=== PATIENT | female | born 1960 | race Caucasian/White ===

== ENCOUNTER 2020-04-03 19:42 | Emergency (ER) | payer MEDICARE, MEDICAID ==
[~2020-04-03] VITALS: Ht 165.1 cm; Wt 60.0 kg
[2020-04-03 19:50] VITALS: BP 130/94
== END 2020-04-04 02:20 | disposition home or self-care (01) ==
LOC: ER 19:42
DX: F10.129 Alcohol abuse with intoxication, unspecified (principal); G89.29 Other chronic pain; M54.9 Dorsalgia, unspecified; I25.2 Old myocardial infarction; Y90.9 Presence of alcohol in blood, level not specified
CPT/HCPCS: 99283

== ENCOUNTER 2020-04-05 04:32 | Emergency (ER) | payer MEDICARE, MEDICAID ==
[~2020-04-05] VITALS: Ht 157.5 cm; Wt 61.0 kg
[2020-04-05 08:13] LABS: BASOPHILS % 1.6 % (0.0-2.0); EOSINOPHILS % 0.9 % (0.0-5.0); HEMATOCRIT. 36.3 % (36.0-48.0); HEMOGLOBIN. 12.4 g/dL (12.0-16.0); LYMPHOCYTES % 49.3 % (20.0-50.0); MEAN CORPUSCULAR HEMOGLOBIN 34.4 pg (28.0-32.0); MEAN CORPUSCULAR VOLUME 100.7 fL (81.0-99.0); MEAN PLATELET VOLUME 7.2 fl (7.4-10.4); MONOCYTES % 5.2 % (2.0-8.0); PLATELET 74 x1000/uL (130-400); RED BLOOD CELL COUNT 3.61 mill/uL (4.2-5.4); RED CELL DISTRIBUTION WIDTH 19.4 % (11.6-14.6)
[2020-04-05 08:16] LABS: CHLORIDE 107 mEq/L (98-107)
[2020-04-05 08:34] LABS: ETHANOL BLOOD 366 mg/dL
[2020-04-05 08:57] VITALS: BP 131/88
== END 2020-04-05 10:07 | disposition home or self-care (01) ==
LOC: ER 04:32
DX: F10.129 Alcohol abuse with intoxication, unspecified (principal); Y90.8 Blood alcohol level of 240 mg/100 ml or more; I25.2 Old myocardial infarction
CPT/HCPCS: 36415; 80053; 80320; 85025; 99283; G0480

== ENCOUNTER 2020-06-08 14:33 | Inpatient (IN) | payer MEDICARE, MEDICAID ==
[~2020-06-08] VITALS: Ht 165.1 cm; Wt 59.0 kg
[2020-06-08] MEDS ORDERED: ONDANSETRON 4MG ODT PO STA (14:48)
[2020-06-08] MEDS ORDERED: ACETAMINOPHEN 325MG TABLET PO STA (14:48)
[2020-06-08 15:22] LABS: BASOPHILS % 1.1 % (0.0-2.0); EOSINOPHILS % 1.9 % (0.0-5.0); HEMATOCRIT. 39.3 % (36.0-48.0); HEMOGLOBIN. 13.4 g/dL (12.0-16.0); LYMPHOCYTES % 37.4 % (20.0-50.0); MEAN CORPUSCULAR HEMOGLOBIN 35.3 pg (28.0-32.0); MEAN CORPUSCULAR VOLUME 103.6 fL (81.0-99.0); MONOCYTES % 9.7 % (2.0-8.0); NEUTROPHILS % 49.9 % (40.0-76.0); RED BLOOD CELL COUNT 3.79 mill/uL (4.2-5.4)
[2020-06-08 15:29] LABS: CHLORIDE 103 mEq/L (98-107)
[2020-06-08 15:33] LABS: INR 1.1; PROTHROMBIN TIME 11.6 sec (9.6-11.0)
[2020-06-08 15:54] LABS: MEAN PLATELET VOLUME 7.7 fl (7.4-10.4)
[2020-06-08 15:55] LABS: PLATELET 237 x1000/uL (130-400)
[2020-06-08] MEDS ORDERED: ACETAMINOPHEN 650MG/20.3ML UDC GT PRN (17:00)
[2020-06-08] MEDS ORDERED: CLONIDINE 0.1MG TABLET PO PRN (17:00)
[2020-06-08] MEDS ORDERED: ONDANSETRON HCL 4MG/2ML INJ IV PRN (17:00)
[2020-06-08] MEDS ORDERED: HYDROMORPHONE HCL/PF 2MG/ML CPJ IV PRN (17:00)
[2020-06-08] MEDS ORDERED: MAGNESIUM/ALUMINUM HYDROXIDE/SIMETHICONE 30ML UDC PO PRN (17:00)
[2020-06-08] MEDS: DEXT 5%/0.45% NACL KCL 10MEQ/L 1,000 ML IV SCH (22:02)
[2020-06-08] MEDS: PANTOPRAZOLE SODIUM 40 MG/VIAL IV SCH (22:02)
[2020-06-08 22:54] VITALS: BP 99/49
[2020-06-09] VITALS: BP 99/49
[2020-06-09 04:00] VITALS: BP 109/67
[2020-06-09] MEDS ORDERED: GABA100C MT (05:06)
[2020-06-09] MEDS ORDERED: LORA-249 MT (05:06)
[2020-06-09] MEDS ORDERED: OXYC-662 MT (05:06)
[2020-06-09] MEDS: DEXT 5%/0.45% NACL KCL 10MEQ/L 1,000 ML IV SCH (06:29)
[2020-06-09 06:56] LABS: CHLORIDE 104 mEq/L (98-107)
[2020-06-09 07:01] LABS: BASOPHILS % 1.2 % (0.0-2.0); EOSINOPHILS % 2.3 % (0.0-5.0); HEMATOCRIT. 34.4 % (36.0-48.0); HEMOGLOBIN. 11.8 g/dL (12.0-16.0); LYMPHOCYTES % 37.9 % (20.0-50.0); MEAN CORPUSCULAR HEMOGLOBIN 35.4 pg (28.0-32.0); MEAN CORPUSCULAR VOLUME 103.2 fL (81.0-99.0); MEAN PLATELET VOLUME 7.4 fl (7.4-10.4); MONOCYTES % 10.2 % (2.0-8.0); NEUTROPHILS % 48.4 % (40.0-76.0); PLATELET 217 x1000/uL (130-400); RED BLOOD CELL COUNT 3.33 mill/uL (4.2-5.4); RED CELL DISTRIBUTION WIDTH 17.5 % (11.6-14.6)
[2020-06-09 08:00] VITALS: BP 94/63
[2020-06-09] MEDS: PANTOPRAZOLE SODIUM 40 MG/VIAL IV SCH (09:25)
[2020-06-09] MEDS ORDERED: POTASSIUM CHLORIDE 20MEQ TABLET SR PO SCH (11:15)
[2020-06-09] MEDS ORDERED: KETOROLAC 30MG/ML VIAL IV PRN (11:15)
[2020-06-09 11:48] VITALS: BP 102/63
[2020-06-09 15:49] VITALS: BP 115/76
[2020-06-09 20:00] VITALS: BP 110/70
[2020-06-09] MEDS ORDERED: MAGNESIUM 1 G PREMIX 100 ML IV NR (21:30)
[2020-06-10] VITALS: BP 106/77
[2020-06-10 04:00] VITALS: BP 108/67
[2020-06-10 07:33] LABS: CHLORIDE 103 mEq/L (98-107)
[2020-06-10] MEDS ORDERED: LIDOCAINE HCL 1% 20ML VIAL (Pyxis) INJ ONE (07:46)
[2020-06-10 08:00] VITALS: BP 100/63
[2020-06-10] MEDS ORDERED: IOHEXOL-300 50 ML BOTTLE IV ONE (08:18)
[2020-06-10] MEDS: PANTOPRAZOLE SODIUM 40 MG/VIAL IV SCH (09:18)
[2020-06-10 12:00] VITALS: BP 94/65
[2020-06-10 16:00] VITALS: BP 113/75
[2020-06-10 20:00] VITALS: BP 113/81
[2020-06-11] VITALS: BP 115/83
[2020-06-11 04:00] VITALS: BP 120/85
[2020-06-11 08:00] VITALS: BP 124/76
[2020-06-11] MEDS: PANTOPRAZOLE SODIUM 40 MG/VIAL IV SCH (09:07)
[2020-06-11 14:00] VITALS: BP 98/60
== END 2020-06-11 14:10 | DRG 641 ==
LOC: ER 14:33 → 6EST 16:24 → EDBEDREQSVC 16:38 → EDBEDREQ 16:38 → EDBEDREQTM 16:38 → EDBEDREQSVC 18:19 → ENRESERV 20:23
PROVIDERS: ADMIT Hospitalist; ATTEND Hospitalist
PROC: 02HV33Z Insertion of Infusion Device into Superior Vena Cava, Percutaneous Approach (ICD-10-PCS; principal; 2020-06-10)
PROC: B548ZZA Ultrasonography of Superior Vena Cava, Guidance (ICD-10-PCS; 2020-06-10)
PROC: B5181ZA Fluoroscopy of Superior Vena Cava using Low Osmolar Contrast, Guidance (ICD-10-PCS; 2020-06-10)
DX: E87.6 Hypokalemia (principal); R10.9 Unspecified abdominal pain; D63.8 Anemia in other chronic diseases classified elsewhere; Z20.822 Contact with and (suspected) exposure to COVID-19; R74.01 Elevation of levels of liver transaminase levels; R53.1 Weakness; F10.10 Alcohol abuse, uncomplicated; Z88.8 Allergy status to other drugs, medicaments and biological substances; Z59.0 Homelessness; Z79.899 Other long term (current) drug therapy; Z88.0 Allergy status to penicillin; I25.2 Old myocardial infarction; M54.5 Low back pain
CPT/HCPCS: 36415; 36573; 74176; 80048; 80053; 83735; 85025; 87426; 93005; 97162; 99285; A6261; C1725; C1769; C9113; J3475; J3490; Q0162; Q9967

== ENCOUNTER 2020-11-04 21:34 | Emergency (ER) | payer MEDICARE, MEDICAID ==
[~2020-11-04] VITALS: Ht 167.6 cm; Wt 57.0 kg
[~2020-11-04 21:34] MED LIST: GABA100C MT; LORA-249 MT; OXYC-662 MT
[2020-11-04] MEDS ORDERED: ACETAMINOPHEN 325MG TABLET PO ONE (23:45)
[2020-11-05] MEDS ORDERED: ACET650T37 MT (03:23)
[2020-11-05 03:37] VITALS: BP 107/63
[2020-11-05] MEDS ORDERED: ONDA4TAB5 PO (12:45)
[2020-11-05] MEDS ORDERED: ONDA4TAB5 MT (19:10)
[2020-11-05] MEDS ORDERED: TRAM50TA94 MT (23:40)
== END 2020-11-05 03:37 | disposition home or self-care (01) ==
LOC: ER 21:34
DX: G43.909 Migraine, unspecified, not intractable, without status migrainosus (principal); J44.1 Chronic obstructive pulmonary disease with (acute) exacerbation; Z88.8 Allergy status to other drugs, medicaments and biological substances; Z88.0 Allergy status to penicillin
CPT/HCPCS: 99284

== ENCOUNTER 2020-11-05 15:03 | Emergency (ER) | payer MEDICARE, MEDICAID ==
[~2020-11-05] VITALS: Ht 165.1 cm; Wt 57.0 kg
[~2020-11-05 15:03] MED LIST changes: +ACET650T37 MT; +ONDA4TAB5 PO
[2020-11-05] MEDS ORDERED: ONDANSETRON 4MG ODT PO STA (16:58)
[2020-11-05] MEDS ORDERED: ONDA4TAB5 MT (19:10)
[2020-11-05 19:28] VITALS: BP 121/83
[2020-11-05] MEDS ORDERED: TRAM50TA94 MT (23:40)
== END 2020-11-05 19:30 | disposition home or self-care (01) ==
LOC: ER 15:03
DX: R11.2 Nausea with vomiting, unspecified (principal); J44.1 Chronic obstructive pulmonary disease with (acute) exacerbation; Z88.0 Allergy status to penicillin; Z88.8 Allergy status to other drugs, medicaments and biological substances; Z79.899 Other long term (current) drug therapy; Z86.59 Personal history of other mental and behavioral disorders
CPT/HCPCS: 99283; Q0162

== ENCOUNTER 2020-11-05 20:27 | Emergency (ER) | payer MEDICARE, MEDICAID ==
[~2020-11-05] VITALS: Ht 165.1 cm; Wt 62.0 kg
[~2020-11-05 20:27] MED LIST changes: +ONDA4TAB5 MT
[2020-11-05 21:26] VITALS: BP 137/100
[2020-11-05] MEDS ORDERED: KETOROLAC 15MG/ML VIAL IM ONE (22:45)
[2020-11-05] MEDS ORDERED: LOPERAMIDE HCL 2MG CAPSULE PO ONE (22:45)
[2020-11-05] MEDS ORDERED: TRAM50TA94 MT (23:40)
== END 2020-11-06 00:32 | disposition home or self-care (01) ==
LOC: ER 20:27
DX: M54.5 Low back pain (principal); G89.29 Other chronic pain; F41.9 Anxiety disorder, unspecified; F43.10 Post-traumatic stress disorder, unspecified; Z59.0 Homelessness; Z88.0 Allergy status to penicillin; Z88.8 Allergy status to other drugs, medicaments and biological substances; Z96.659 Presence of unspecified artificial knee joint
CPT/HCPCS: 99282; J1885

== ENCOUNTER 2020-11-06 01:52 | Emergency (ER) | payer MEDICARE, MEDICAID ==
[~2020-11-06] VITALS: Ht 165.1 cm; Wt 64.0 kg
[~2020-11-06 01:52] MED LIST changes: +TRAM50TA94 MT
[2020-11-06 02:08] VITALS: BP 136/84
== END 2020-11-06 03:58 | disposition home or self-care (01) ==
LOC: ER 02:44
DX: M54.5 Low back pain (principal); G89.29 Other chronic pain; F41.9 Anxiety disorder, unspecified; Z59.0 Homelessness; Z88.0 Allergy status to penicillin; Z88.8 Allergy status to other drugs, medicaments and biological substances; Z96.659 Presence of unspecified artificial knee joint
CPT/HCPCS: 99283